=== PATIENT | male | born 1950 | race Caucasian/White ===

== ENCOUNTER 2016-08-11 19:02 | Emergency (ER) | payer MEDICARE ==
[2016-08-11 20:33] LABS: BASOPHILS 0.6 % (0.0-2.0); EOSINOPHILS 4.1 % (0-7); HEMATOCRIT 47.5 % (42.0-54.0); HEMOGLOBIN 16.2 g/dL (13.5-17.5); LYMPHOCYTES 37.6 % (15-50); MCH 30.4 pg (26.0-34.0); MCHC 34.1 g/dL (31.0-37.0); MCV 89.1 fL (80.0-100.0); MEAN PLATELET VOLUME 9.7 fL (7.4-10.4); NEUTROPHILS 43.7 % (40-80); PLATELET COUNT 172 10x3/uL (130-400); RBC 5.33 10x6/uL (4.20-6.10); RDW 13.1 % (11.5-14.5); WBC 5.4 10x3/uL (4.8-10.8)
[2016-08-11 20:48] LABS: ALBUMIN 3.7 g/dL (3.4-5.0); ALKALINE PHOSPHATASE 86 U/L (46-116); ALT (SGPT) 41 U/L (10-68); BILIRUBIN - TOTAL 0.19 mg/dL (0.2-1.3); CALC OSMOLALITY 281 mosm/kg (275-300); CALCIUM 8.8 mg/dL (8.5-10.1); CARBON DIOXIDE 26.5 mmol/L (21.0-32.0); CHLORIDE - SERUM 105 mmol/L (98-107); GLUCOSE 107 mg/dL (74-106); POTASSIUM - SERUM 4.5 mmol/L (3.5-5.1); PROTEIN - SERUM 7.1 g/dL (6.4-8.2); SODIUM 140 mmol/L (136-145); UREA NITROGEN 22 mg/dL (7-18); eGFR NON AFRICAN AMERICAN 79 mL/min (90-120)
[2016-08-11 20:55] LABS: PRO BNP 122 pg/mL (0-125)
== END 2016-08-11 21:17 | disposition home or self-care (01) ==
LOC: D.ER 19:02
PROVIDERS: Nurse Practitioner Family
DX: J20.9 Acute bronchitis, unspecified (principal); I10 Essential (primary) hypertension

== ENCOUNTER 2017-08-19 15:03 | Emergency (ER) | payer MEDICARE ==
[2017-08-19 15:33] LABS: APPEARANCE CLOUDY (CLEAR); COLOR YELLOW (YELLOW)
[2017-08-19 15:34] LABS: BILIRUBIN NEGATIVE (NEGATIVE); GLUCOSE NEGATIVE (NEGATIVE); KETONE NEGATIVE (NEGATIVE); NITRITE NEGATIVE (NEGATIVE); PROTEIN TRACE mg/dL (NEGATIVE); SPECIFIC GRAVITY 1.015 (1.005-1.020); UROBILINOGEN NORMAL (NORMAL)
[2017-08-19 15:38] LABS: BACTERIA FEW /hpf (NONE SEEN); EPITHELIAL CELLS 0-5 /hpf (0-5); RED CELLS - URINE >50 /hpf (0-5)
[2017-08-19 15:39] LABS: SPERMATOZOA PRESENT /hpf (NONE SEEN)
[2017-08-19 16:30] LABS: BASOPHILS 0.3 % (0-2); EOSINOPHILS 1.4 % (0-7); HEMATOCRIT 48.1 % (42.0-54.0); HEMOGLOBIN 16.6 g/dL (13.5-17.5); IMMATURE GRANULOCYTES 0.3 % (0-5); LYMPHOCYTES 12.5 % (15-50); MCH 30.8 pg (26.0-34.0); MCHC 34.5 g/dL (31.0-37.0); MCV 89.2 fL (80.0-100.0); MEAN PLATELET VOLUME 9.7 fL (7.4-10.4); MONOCYTES 4.2 % (2-11); NEUTROPHILS 81.3 % (40-80); PLATELET COUNT 204 10x3/uL (130-400); RBC 5.39 10x6/uL (4.20-6.10); RDW 13.1 % (11.5-14.5); WBC 12.8 10x3/uL (4.8-10.8)
[2017-08-19 16:53] LABS: ALBUMIN 3.9 g/dL (3.4-5.0); ANION GAP 14.4 mmol/L (8-16); BILIRUBIN - TOTAL 0.44 mg/dL (0.2-1.3); CARBON DIOXIDE 23.5 mmol/L (21.0-32.0); CREATININE - SERUM 1.1 mg/dL (0.6-1.3); POTASSIUM - SERUM 3.9 mmol/L (3.5-5.1); PROTEIN - SERUM 7.7 g/dL (6.4-8.2)
== END 2017-08-19 18:36 | disposition home or self-care (01) ==
LOC: D.ER 15:03
PROVIDERS: Family Medicine
DX: N20.1 Calculus of ureter (principal); I10 Essential (primary) hypertension

== ENCOUNTER 2019-02-10 13:18 | Emergency (ER) | payer MEDICARE ==
[~2019-02-10] VITALS: Ht 177.8 cm; Wt 72.7 kg
[2019-02-10 13:30] VITALS: Ht 177.8 cm; Wt 72.7 kg
[2019-02-10] MEDS ORDERED: COZAAR50 MG PO (13:31)
[2019-02-10 14:47] VITALS: BP 168/72
== END 2019-02-10 14:49 | disposition home or self-care (01) ==
LOC: D.ER 13:18
DX: S93.601A Unspecified sprain of right foot, initial encounter (principal); S95 Injury of blood vessels at ankle and foot level; X58.XXXA Exposure to other specified factors, initial encounter; Y93.89 Activity, other specified; Y92.89 Other specified places as the place of occurrence of the external cause